=== PATIENT | male | born 2005 | race Caucasian/White ===

== ENCOUNTER 2024-05-24 20:27 | Emergency (ER) | payer OTHER ==
[~2024-05-24] VITALS: Ht 165.1 cm; Wt 72.6 kg
[2024-05-24] MEDS ORDERED: ACETAMINOPHEN ES 500 MG TABLET ONE (21:12)
[2024-05-24] MEDS ORDERED: IBUPROFEN 400 MG TABLET ONE (21:12)
[2024-05-24] MEDS ORDERED: CYCLOBENZAPRINE 10 MG TABLET ONE (21:12)
[2024-05-24] MEDS: CYCLOBENZAPRINE 10 MG TABLET PO ONE (21:18)
[2024-05-24] MEDS: ACETAMINOPHEN ES 500 MG TABLET PO ONE (21:18)
[2024-05-24] MEDS: IBUPROFEN 400 MG TABLET PO ONE (21:18)
[2024-05-24] MEDS ORDERED: KETO10TA2 PO (21:48)
[2024-05-24] MEDS ORDERED: CYCL10TA9 PO (21:48)
[2024-05-24 22:12] VITALS: BP 129/76; TEMP 98.3; O2SAT 98
== END 2024-05-24 22:13 | disposition home or self-care (01) ==
LOC: ER 20:36
DX: S16.1XXA Strain of muscle, fascia and tendon at neck level, initial encounter (principal); S50.812A Abrasion of left forearm, initial encounter; S50.811A Abrasion of right forearm, initial encounter; M62.838 Other muscle spasm; V43.52XA Car driver injured in collision with other type car in traffic accident, initial encounter; Y93.89 Activity, other specified; Y92.488 Other paved roadways as the place of occurrence of the external cause; Y99.8 Other external cause status